=== PATIENT | female | born 1980 | race Caucasian/White ===

== ENCOUNTER → 2016-04-11 | Outpatient (CLI) | payer MEDICARE, MEDICAID ==
[~2016-04-11] MED LIST: ABILIFY; ADIPEX-P37.5 MG PO; AEROSPAN80 MCG/Act IH; AMBIEN5 MG PO; ANAPROX DS550 MG PO; ATIVAN 1MG T1 MG/TAB PO; ATIVAN 2MG2 MG PO; BACTROBAN15 GM TOP; BENADRYL; BENADRYL50 MG PO; BUSPAR10 MG PO; CEPHALEXIN500 M1 PO; CLEOCIN HCL300 MG PO; CLINDAMYCIN150 MG PO; CLINDAMYCIN300 MG PO; CLONAZEPAM PO; CLONAZEPAM1 MG PO; CLONIDINE0.1 MG PO; CYMBALTA 60MG60 MG PO; DESYREL 100MG100 MG PO; DESYREL DIVIDO300 MG PO; DOXYCYCLINE 10100 MG PO; DULERA1 ARO IH; FASTIN30 MG PO; FERROUS FUMARA325 MG PO; FLUOXETINE20 MG PO; FOLIC ACID 11 MG/TA1 PO; GEODON60 MG PO; HALDOL5 MG PO; HYDROXYZINE10 M1 PO; HYDROXYZINE50 MG PO; INDERAL 20MG20 MG PO; IPRATROPIUM BROM3 M1 IH; KLONOPIN 1MG1 MG PO; KLONOPIN1 MG PO; KLONOPIN2 MG PO; LAMICTAL; LATUDA40 MG PO; LEVAQUIN 750MG750 M1 PO; LEVOTHYROXINE PO; LORTAB 5/500 501 TAB PO; LOXAPINE PO; LOXAPINE5 MG PO; METHOCARBAMOL500 MG PO; MINIPRESS1 MG PO; MOTRIN 800800 MG/TAB PO; NAPROSYN500 MG PO; NEURONTIN100 MG/CAP PO; NEXIUM 20MG20 MG PO; NORCO 325 MG-51 TAB PO; OMNICEF 300MG300 MG PO; PERFOROMIS20 MCG/2 M IH; PHENTERMINE15 MG PO; PREDNISONE10 MG PO; PREDNISONE20 MG PO; PRENATAL ONE DA1 TAB PO; PRESTIQ PO; PRIL40 PO; PRILOSEC 20MG20 MG PO; PROAIR HFA0.09 MG/AC IH; PULMICORT90 MCG/Act IH; Protonix PO; RT ADVAIR 128 DISKUS IH; RT ADVAIR HFA 1112 G IH; SEROQUEL 1100 MG/TAB PO; SEROQUEL 200MG200 MG PO; SEROQUEL300 MG PO; SERTRALINE50 MG PO; TEGRETOL; TEGRETOL 1100 MG/TAB PO; TEGRETOL PO; TEGRETOL200 MG PO; TRAZODONE; TRILEPTAL600 MG PO; TYLENOL 325MG325 MG PO; VENTOLIN0.09 MG IH; VYVANSE20 MG PO; XANAX 0.5MG0.5 MG PO; XANAX1 MG PO; ZIPRASIDONE PO; ZITHROMAX 250M250 MG PO; ZOFRAN 4MG T4 MG/TAB PO; ZOFRAN ODT4 MG PO; ZOLOFT; ZOLOFT 100MG100 MG PO; [UNRECOGNIZED DRUG - OTHER]; [UNRECOGNIZED DRUG - OTHER]; [UNRECOGNIZED DRUG - OTHER] PO; ambilify
== END ==
LOC: BHSO 10:09
DX: F31.81 Bipolar II disorder (principal)

== ENCOUNTER 2016-04-27 10:52 | Outpatient (RCR) | payer MEDICARE ==
[~2016-04-27 10:52] MED LIST changes: -BACTROBAN15 GM TOP; -NEURONTIN100 MG/CAP PO; +NEURONTIN300 MG/CAP PO; -PRIL40 PO
== END 2016-07-26 | disposition home or self-care (01) ==
LOC: WSST
DX: J38.3 Other diseases of vocal cords (principal)
CPT/HCPCS: G9174-GN; G9175-GN

== ENCOUNTER → 2016-05-19 | Outpatient (CLI) | payer MEDICARE ==
[~2016-05-19] MED LIST changes: +BACTROBAN15 GM TOP; +NEURONTIN100 MG/CAP PO; -NEURONTIN300 MG/CAP PO; +PRIL40 PO
== END ==
LOC: BHSO 10:03
DX: F31.73 Bipolar disorder, in partial remission, most recent episode manic (principal)

== ENCOUNTER → 2016-06-02 | Outpatient (CLI) | payer MEDICARE ==
[~2016-06-02] VITALS: Ht 162.6 cm; Wt 97.7 kg
[2016-06-02 10:12] VITALS: BP 142/82; PULSE 88
[2016-06-02 10:39] VITALS: BP 142/82; PULSE 88
== END ==
LOC: LIGHT 10:05
DX: E88.81 Metabolic syndrome and other insulin resistance (principal); R73.01 Impaired fasting glucose; E66.09 Other obesity due to excess calories; Z68.37 Body mass index [BMI] 37.0-37.9, adult

== ENCOUNTER → 2016-07-06 | Outpatient (CLI) | payer MEDICARE ==
[~2016-07-06] MED LIST changes: +BUSPAR5 MG PO; +NASONEX SPRAY17 GM NS; -NEURONTIN100 MG/CAP PO; +NEURONTIN300 MG/CAP PO; +REMERON 15M15 MG/TA1 PO; +RT ADVAIR 528 DISKUS IH; +SINGULAIR 110 MG/TAB PO; +SYNTHROID0.1 MG/TAB PO; +VALIUM 5MG T5 MG/TAB PO; +XARELTO20 MG PO
== END ==
LOC: BHSO 12:39
DX: F31.73 Bipolar disorder, in partial remission, most recent episode manic (principal)

== ENCOUNTER → 2016-09-02 | Outpatient (CLI) | payer MEDICARE, MEDICAID | LOC: BHSO 13:54 | DX: F31.73 Bipolar disorder, in partial remission, most recent episode manic (principal) ==

== ENCOUNTER 2016-09-08 12:32 | Emergency (ER) | payer MEDICARE, MEDICAID ==
[~2016-09-08] VITALS: Ht 162.6 cm; Wt 90.9 kg
[~2016-09-08 12:32] MED LIST changes: -BACTROBAN15 GM TOP; -BUSPAR5 MG PO; -NASONEX SPRAY17 GM NS; -PRIL40 PO; -REMERON 15M15 MG/TA1 PO; -RT ADVAIR 528 DISKUS IH; -SINGULAIR 110 MG/TAB PO; -SYNTHROID0.1 MG/TAB PO; -VALIUM 5MG T5 MG/TAB PO; -XARELTO20 MG PO
[2016-09-08 12:36] VITALS: BP 178/104; PULSE 84; TEMP 98.2
[2016-09-08] MEDS ORDERED: CEPHALEXIN500 M1 PO (13:04)
[2016-09-08] MEDS ORDERED: BACTROBAN15 GM TOP (13:05)
== END 2016-09-08 13:15 | disposition home or self-care (01) ==
LOC: COL.ER 12:32
DX: L01.00 Impetigo, unspecified (principal); F95.2 Tourette's disorder; J45.909 Unspecified asthma, uncomplicated

== ENCOUNTER 2016-10-05 17:08 | Inpatient (IN) | payer MEDICARE, MEDICAID ==
[~2016-10-05] VITALS: Ht 162.6 cm; Wt 102.6 kg
[~2016-10-05 17:08] MED LIST changes: +BACTROBAN15 GM TOP
[2016-10-05 18:43] LABS: BASO % 0.2 % (0.0-2.0); EOS % 0.1 % (0-4.0); GRAN # 13.1 (1.4-6.5); GRAN % 86.5 % (42.2-75.2); LYMPH # 1.3 (1.2-3.4); LYMPH % 8.6 % (20.0-51.0); MEAN CELL VOLUME 69 fl (80.0-100.0); MEAN CORPUSCULAR HGB CONC 30 g/dl (33.0-37.0); MEAN PLATELET VOLUME 10.5 fl (7.4-10.4); MONO # 0.6 (0.1-0.6); MONO % 3.7 % (1.7-9.3); PLATELET COUNT 396 K/mm3 (130-400); RED BLOOD COUNT 3.78 M/mm3 (4.10-5.30); REDCELL DISTRIBUTION WIDTH-CV 20.3 % (11.5-14.5); WHITE BLOOD COUNT 15.2 K/mm3 (4.8-10.8)
[2016-10-05 18:44] LABS: HEMATOCRIT 26.1 % (37.0-47.0); HEMOGLOBIN 7.8 g/dl (12.5-16.0); MEAN CORPUSCULAR HEMOGLOBIN 21 pg (27.0-31.0)
[2016-10-05 18:54] LABS: CALCIUM 9.1 mg/dL (8.4-10.2); CREATININE, serum 0.56 mg/dL (0.52-1.25); POTASSIUM 3.7 mmol/L (3.4-5.0)
[2016-10-05] MEDS ORDERED: ATIVAN 1MG T1 MG/TAB PO ×2 (19:53→20:13)
[2016-10-05] MEDS ORDERED: PRIL40 PO (20:13)
[2016-10-05 21:04] VITALS: BP 154/82; PULSE 75; TEMP 97.7
[2016-10-05 23:34] VITALS: BP 141/73; PULSE 82; TEMP 98
[2016-10-06] VITALS (126 sets, daily range): BP systolic 155–156; BP diastolic 87–88; PULSE 72–98; TEMP 97.8–98.1; O2SAT 44–100
[2016-10-06 04:32] LABS: ARTERIAL BLD GAS O2 SATURATION 97.5 % (92-100); ARTERIAL BLD GAS TCO2 CT 22.2; ARTERIAL BLOOD GAS BASE EXCESS -3.3 (-2-2); ARTERIAL BLOOD GAS HCO3 21.1 meq/L (22-26); OXYHEMOGLOBIN 96.5 %
[2016-10-06 07:38] LABS: MEAN CELL VOLUME 70 fl (80.0-100.0); MEAN CORPUSCULAR HGB CONC 29 g/dl (33.0-37.0); MEAN PLATELET VOLUME 10.8 fl (7.4-10.4); PLATELET COUNT 322 K/mm3 (130-400); REDCELL DISTRIBUTION WIDTH-CV 20.6 % (11.5-14.5); WHITE BLOOD COUNT 14.7 K/mm3 (4.8-10.8)
[2016-10-06 07:39] LABS: HEMATOCRIT 26.5 % (37.0-47.0); HEMOGLOBIN 7.7 g/dl (12.5-16.0); MEAN CORPUSCULAR HEMOGLOBIN 20 pg (27.0-31.0)
[2016-10-06 07:40] LABS: ADD PATHOLOGY DIFF REVIEW NO
[2016-10-06 07:59] LABS: CALCIUM 8.8 mg/dL (8.4-10.2); CREATININE, serum 0.53 mg/dL (0.52-1.25); POTASSIUM 3.9 mmol/L (3.4-5.0)
[2016-10-06 08:28] LABS: BAND 1 % (0-10); BASOPHIL 1 % (0-2); NEUTROPHILS 91 % (42.0-75.2); TOTAL CELLS COUNTED 100
[2016-10-06 08:29] LABS: HYPOCHROMIA 2+; MICROCYTOSIS 2+; SPHEROCYTE 1+
[2016-10-06 08:30] LABS: PLATELET ESTIMATE NORMAL (NORMAL)
[2016-10-06 08:53] LABS: ARTERIAL BLOOD GAS PO2 123.1 mmHg (80-100); ARTERIAL BLOOD GAS PO2T 123.1 (80-100); ATS? YES
[2016-10-06 09:03] LABS: ARTERIAL BLD GAS O2 SATURATION 94.1 % (92-100); ARTERIAL BLD GAS TCO2 CT 25.3; ARTERIAL BLOOD GAS BASE EXCESS -0.3 (-2-2); ARTERIAL BLOOD GAS HCO3 24.1 meq/L (22-26); ARTERIAL BLOOD GAS PHT 7.41 C (7.35-7.45); ARTERIAL BLOOD GAS PO2 80.2 mmHg (80-100); ARTERIAL BLOOD GAS PO2T 80.2 (80-100); ARTERIAL BLOOD GAS pH 7.41 (7.35-7.45); OXYHEMOGLOBIN 93.6 %
[2016-10-06 09:04] LABS: ALLEN TEST YES; ALLENS TEST RESULT PASS; ATS? YES
[2016-10-06 11:04] LABS: ARTERIAL BLD GAS O2 SATURATION 93.6 % (92-100); ARTERIAL BLD GAS TCO2 CT 28.6; ARTERIAL BLOOD GAS BASE EXCESS -1.4 (-2-2); ARTERIAL BLOOD GAS HCO3 26.6 meq/L (22-26); ARTERIAL BLOOD GAS PHT 7.24 C (7.35-7.45); ARTERIAL BLOOD GAS PO2 93.5 mmHg (80-100); ARTERIAL BLOOD GAS PO2T 93.5 (80-100); ARTERIAL BLOOD GAS pH 7.24 (7.35-7.45); OXYHEMOGLOBIN 92.8 %
[2016-10-06 11:06] LABS: ATS? YES
[2016-10-06 11:07] LABS: ABG VENTILATOR TIDAL VOLUME 450 mL
== END 2016-10-06 11:15 | disposition short-term general hospital (02) | DRG 208 ==
LOC: COL.ER 17:08 → MEDICAL 18:28 → ICU 18:28
PROVIDERS: Emergency Medicine; Internal Medicine Pulmonary Disease; Nurse Practitioner Family
PROC: 5A1935Z Respiratory Ventilation, Less than 24 Consecutive Hours (ICD-10-PCS; principal; 2016-10-05)
PROC: 0BH17EZ Insertion of Endotracheal Airway into Trachea, Via Natural or Artificial Opening (ICD-10-PCS; 2016-10-05)
PROC: 02HV33Z Insertion of Infusion Device into Superior Vena Cava, Percutaneous Approach (ICD-10-PCS; 2016-10-06)
DX: J96.01 Acute respiratory failure with hypoxia (principal); J18.9 Pneumonia, unspecified organism; J45.901 Unspecified asthma with (acute) exacerbation; K21.9 Gastro-esophageal reflux disease without esophagitis; K44.9 Diaphragmatic hernia without obstruction or gangrene; F31.9 Bipolar disorder, unspecified; F17.210 Nicotine dependence, cigarettes, uncomplicated; D50.9 Iron deficiency anemia, unspecified; Z79.52 Long term (current) use of systemic steroids
CPT/HCPCS: 99223-AI; A4315; C1751; J0330; J0692; J1644; J1650; J1956; J2060; J2250; J2704; J2930; J3010; J3370; J7030; J7050

== ENCOUNTER → 2016-12-06 | Outpatient (CLI) | payer MEDICARE, MEDICAID ==
[~2016-12-06] MED LIST changes: +BUSPAR5 MG PO; +NASONEX SPRAY17 GM NS; +PRIL40 PO; +REMERON 15M15 MG/TA1 PO; +RT ADVAIR 528 DISKUS IH; +SINGULAIR 110 MG/TAB PO; +SYNTHROID0.1 MG/TAB PO; +VALIUM 5MG T5 MG/TAB PO; +XARELTO20 MG PO
== END ==
LOC: BHSO 15:42
DX: F31.73 Bipolar disorder, in partial remission, most recent episode manic (principal)

== ENCOUNTER 2016-12-27 15:13 | Emergency (ER) | payer MEDICARE, MEDICAID ==
[~2016-12-27] VITALS: Ht 162.6 cm; Wt 90.9 kg
[~2016-12-27 15:13] MED LIST changes: -BUSPAR5 MG PO; -NASONEX SPRAY17 GM NS; -REMERON 15M15 MG/TA1 PO; -RT ADVAIR 528 DISKUS IH; -SINGULAIR 110 MG/TAB PO; -SYNTHROID0.1 MG/TAB PO; -VALIUM 5MG T5 MG/TAB PO; -XARELTO20 MG PO
[2016-12-27 15:26] VITALS: TEMP 98.9
[2016-12-27 16:07] LABS: ARTERIAL BLD GAS O2 SATURATION 88.7 % (92-100); ARTERIAL BLD GAS TCO2 CT 20.4; ARTERIAL BLOOD GAS BASE EXCESS -4.9 (-2-2); ARTERIAL BLOOD GAS HCO3 19.4 meq/L (22-26); ARTERIAL BLOOD GAS PHT 7.38 C (7.35-7.45); ARTERIAL BLOOD GAS PO2 58.7 mmHg (80-100); ARTERIAL BLOOD GAS PO2T 58.7 (80-100); ARTERIAL BLOOD GAS pH 7.38 (7.35-7.45); OXYHEMOGLOBIN 87.7 %
[2016-12-27 16:09] LABS: ALLEN TEST YES; ALLENS TEST RESULT PASS; ATS? YES
[2016-12-27] MEDS ORDERED: VALIUM 5MG T5 MG/TAB PO (16:14)
[2016-12-27 16:17] LABS: MEAN CELL VOLUME 89 fl (80.0-100.0); MEAN CORPUSCULAR HGB CONC 32 g/dl (33.0-37.0); MEAN PLATELET VOLUME 10.6 fl (7.4-10.4); PLATELET COUNT 470 K/mm3 (130-400); RED BLOOD COUNT 3.93 M/mm3 (4.10-5.30); REDCELL DISTRIBUTION WIDTH-CV 15.7 % (11.5-14.5)
[2016-12-27 16:19] LABS: INR 1.4 (0.8-3.0); PROTHROMBIN TIME 16.1 SECONDS (9.7-12.8)
[2016-12-27] MEDS ORDERED: XARELTO20 MG PO (16:19)
[2016-12-27] MEDS ORDERED: SINGULAIR 110 MG/TAB PO (16:20)
[2016-12-27 16:22] LABS: PARTIAL THROMBOPLASTIN TIME 36.2 SECONDS (26.0-37.0)
[2016-12-27] MEDS ORDERED: SYNTHROID0.1 MG/TAB PO (16:22)
[2016-12-27] MEDS ORDERED: VENTOLIN0.09 MG IH (16:22)
[2016-12-27 16:23] LABS: HEMOGLOBIN 11.2 g/dl (12.5-16.0); MEAN CORPUSCULAR HEMOGLOBIN 28 pg (27.0-31.0); WHITE BLOOD COUNT 26.3 K/mm3 (4.8-10.8)
[2016-12-27 16:24] LABS: ADD PATHOLOGY DIFF REVIEW NO
[2016-12-27] MEDS ORDERED: NEURONTIN300 MG/CAP PO (16:26)
[2016-12-27 16:29] LABS: ADJUSTED CALCIUM 8.9 mg/dL (8.4-10.2); ALANINE AMINOTRANSFERASE 104 U/L (9-52); ALBUMIN 4.2 gm/dL (3.5-5.0); ALKALINE PHOSPHATASE 478 U/L (50-136); ANION GAP 13 mmol/L (7-16); BILIRUBIN,TOTAL 0.7 mg/dL (0.0-1.0); BLOOD UREA NITROGEN 17 mg/dL (7-17); CALCIUM 9.1 mg/dL (8.4-10.2); CARBON DIOXIDE 18 mmol/L (22-30); CHLORIDE 110 mmol/L (98-107); CREATININE, serum 0.81 mg/dL (0.52-1.25); GLUCOSE 190 mg/dL (74-106); POTASSIUM 4.1 mmol/L (3.4-5.0); SODIUM 141 mmol/L (137-145); TOTAL PROTEIN 7.5 gm/dL (6.4-8.2)
[2016-12-27] MEDS ORDERED: REMERON 15M15 MG/TA1 PO (16:34)
[2016-12-27] MEDS ORDERED: NASONEX SPRAY17 GM NS (16:35)
[2016-12-27] MEDS ORDERED: BUSPAR5 MG PO (16:35)
[2016-12-27] MEDS ORDERED: RT ADVAIR 528 DISKUS IH (16:36)
[2016-12-27 16:44] LABS: TROPONIN-I < 0.012 ng/mL (0.000-0.034)
[2016-12-27 17:56] LABS: NEUTROPHILS 97 % (42.0-75.2); TOTAL CELLS COUNTED 100
[2016-12-27 17:57] LABS: PLATELET ESTIMATE INCREASED (NORMAL)
[2016-12-27 18:02] VITALS: BP 143/103; PULSE 118
== END 2016-12-27 18:40 | disposition short-term general hospital (02) ==
LOC: COL.ER 15:13
PROVIDERS: Emergency Medicine
DX: J96.00 Acute respiratory failure, unspecified whether with hypoxia or hypercapnia (principal); J18.9 Pneumonia, unspecified organism; J45.909 Unspecified asthma, uncomplicated; F31.9 Bipolar disorder, unspecified; Z86.711 Personal history of pulmonary embolism; Z98.51 Tubal ligation status; Z79.01 Long term (current) use of anticoagulants
CPT/HCPCS: J2060; J2185; J3370; J7030; J7050